=== PATIENT | female | born 1995 | race Asian ===

== ENCOUNTER 2019-08-03 16:25 | Emergency (ER) | payer MEDICAID ==
[~2019-08-03] VITALS: Ht 167.6 cm; Wt 68.0 kg
[2019-08-03 16:55] VITALS: BP 113/64
[2019-08-03] MEDS ORDERED: ACETAMINOPHEN 500MG TABLET PO ONE (18:30)
== END 2019-08-03 18:49 | disposition home or self-care (01) ==
LOC: ER 16:25
DX: J06.9 Acute upper respiratory infection, unspecified (principal); O26.893 Other specified pregnancy related conditions, third trimester; Z3A.36 36 weeks gestation of pregnancy
CPT/HCPCS: 99282